=== PATIENT | male | born 1990 ===

== ENCOUNTER 2017-10-28 11:14 | Inpatient (IN) | payer MEDICAID, OTHER ==
--- NOTE | 2017-10-28 11:53 | ED PDOC ---
Arrival/HPI - General Chief Complaint: Psychiatric Evaluation Time Seen by Provider: 10/28/17 11:18 Historian: Patient - History of Present Illness Narrative History of Present Illness (Text): 10/28/17 11:50 27 year old male, whose past medical history includes schizophrenia, presents to the emergency department for transfer from [facility] for psych admission. Patient will be admitted under Dr. Shell. Patient reports suicidal ideation and auditory hallucinations, but denies any fever, chills, chest pain, shortness of breath, nausea, vomiting, diarrhea, urinary symptoms, back pain, neck pain, headache, dizziness, homicidal Ideation, or any other complaints. Symptom Onset: Other Symptom Course: Unchanged Activities at Onset: Light Context: Other (Transfer) Past Medical History - Provider Review Nursing Documentation Reviewed: Yes - Infectious Disease Hx of Infectious Diseases: None - Cardiac Hx Cardiac Disorders: No - Pulmonary Hx Respiratory Disorders: No - Neurological Hx Neurological Disorder: No - HEENT Hx HEENT Disorder: No - Renal Hx Renal Disorder: No - Endocrine/Metabolic Hx Endocrine Disorders: No - Hematological/Oncological Hx Blood Disorders: No - Integumentary Hx Dermatological Disorder: No - Musculoskeletal/Rheumatological Hx Musculoskeletal Disorders: No - Gastrointestinal Hx Gastrointestinal Disorders: No - Genitourinary/Gynecological Hx Genitourinary Disorders: No - Psychiatric Hx Psychophysiologic Disorder: Yes Hx Depression: Yes Hx Substance Use: Yes Other/Comment: impulsive behavior - Anesthesia Hx Anesthesia: No Family/Social History - Physician Review Nursing Documentation Reviewed: Yes Family/Social History: No Known Family HX Smoking Status: Never Smoked Hx Alcohol Use: No Hx Substance Use: Yes Substance used: cocaine Allergies/Home Meds Allergies/Adverse Reactions: Allergies No Known Allergies Allergy (Verified 10/28/17 11:26) Home Medications: Home Meds Medication Instructions Recorded Confirmed No Known Home Med 10/28/17 10/28/17 Review of Systems - Physician Review All systems were reviewed & negative as marked: Yes - Review of Systems Constitutional: absent: Fevers, Other (Chills) Respiratory: absent: SOB Cardiovascular: absent: Chest Pain Gastrointestinal: absent: Diarrhea, Nausea, Vomiting Genitourinary Male: absent: Dysuria, Frequency, Hematuria Musculoskeletal: absent: Back Pain, Neck Pain Neurological: absent: Headache, Dizziness Psychiatric: Suicidal Ideation, Other ((+)auditory hallucinations (-) homicidal Ideation) Physical Exam Vital Signs Reviewed: Yes Vital Signs Temp Pulse Resp BP Pulse Ox 10/28/17 11:23 98.2 F 64 17 101/66 97 Temperature: Afebrile Blood Pressure: Normal Pulse: Regular Respiratory Rate: Normal Appearance: Positive for: Well-Appearing, Non-Toxic, Comfortable Pain Distress: None Mental Status: Positive for: Alert and Oriented X 3 - Systems Exam Head: Present: Atraumatic, Normocephalic Pupils: Present: PERRL Extroacular Muscles: Present: EOMI Conjunctiva: Present: Normal Mouth: Present: Moist Mucous Membranes Neck: Present: Normal Range of Motion Respiratory/Chest: Present: Clear to Auscultation, Good Air Exchange. No: Respiratory Distress, Accessory Muscle Use Cardiovascular: Present: Regular Rate and Rhythm, Normal S1, S2. No: Murmurs Abdomen: Present: Normal Bowel Sounds. No: Tenderness, Distention, Peritoneal Signs Back: Present: Normal Inspection Upper Extremity: Present: Normal Inspection. No: Cyanosis, Edema Lower Extremity: Present: Normal Inspection. No: Edema Neurological: Present: GCS=15, CN II-XII Intact, Speech Normal Skin: Present: Warm, Dry, Normal Color. No: Rashes Psychiatric: Present: Alert, Oriented x 3, Normal Insight, Normal Concentration Medical Decision Making ED Course and Treatment: 10/28/17 11:50 Impression: 27 year old male presents for psych admission under Dr. Shell. Patient reports suicidal Ideation and auditory hallucinations. Patient is medical cleared. Plan: -- Reassess and disposition Progress Notes: - Medication Orders Current Medication Orders: Acetaminophen (Tylenol 325mg Tab) 650 mg PO Q6H PRN PRN Reason: Pain, moderate (4-7) Al Hydrox/Mg Hydrox/Simethicone (Maalox Plus 30 Ml) 30 ml PO DAILY PRN PRN Reason: Indigestion / Heartburn Diphenhydramine HCl (Benadryl) 50 mg PO Q6H PRN PRN Reason: Agitation Diphenhydramine HCl (Benadryl) 50 mg IM Q6H PRN PRN Reason: Agitation Divalproex Sodium (Depakote Dr (*Bid*)) 250 mg PO [facility]HS JOSE ANGEL PRN Reason: Protocol Fluoxetine HCl (Prozac) 20 mg PO DAILY JOSE ANGEL Haloperidol (Haldol) 5 mg PO Q6H PRN; Protocol PRN Reason: Agitation Haloperidol Lactate (Haldol) 5 mg IM Q6H PRN; Protocol PRN Reason: Agitation Hydroxyzine Pamoate (Vistaril) 50 mg PO Q8 PRN; Protocol PRN Reason: Anxiety Lorazepam (Ativan) 2 mg PO Q6H PRN; Protocol PRN Reason: Agitation Lorazepam (Ativan) 2 mg IM Q6H PRN; Protocol PRN Reason: Agitation Magnesium Hydroxide (Milk Of Magnesia) 30 ml PO DAILY PRN PRN Reason: Constipation Nicotine (Nicoderm Cq) 1 patch TD DAILY [facility] Last Admin: 10/28/17 13:52 Dose: 1 patch MAR Transdermal Patch Site Document 10/28/17 13:52 CV (Rec: 10/28/17 13:52 CV [id number]) Transdermal Patch Site Transdermal Patch Site Right Shoulder Quetiapine Fumarate (Seroquel) 100 mg PO AMHS JOSE ANGEL PRN Reason: Protocol Discontinued Medications Quetiapine Fumarate (Seroquel) 100 mg PO ONCE ONE PRN Reason: Protocol Stop: 10/28/17 13:01 Last Admin: 10/28/17 13:51 Dose: 100 mg Behavioural Document 10/28/17 13:51 CV (Rec: 10/28/17 13:52 CV [id number]) Maintenance Maintenance Dose Yes Nonmedicinal Nonmedicinal Interventions Therapeutic Communication Valproate Sodium (Depakene) 250 mg PO ONCE ONE Stop: 10/28/17 13:06 Last Admin: 10/28/17 13:51 Dose: 250 mg Disposition/Present on Arrival - Present on Arrival Any Indicators Present on Arrival: No History of DVT/PE: No History of Uncontrolled Diabetes: No Urinary Catheter: No History of Decub. Ulcer: No History Surgical Site Infection Following: None - Disposition Have Diagnosis and Disposition been Completed?: Yes Diagnosis: Chest pain Disposition: HOSPITALIZED Disposition Time: 11:20 Condition: STABLE
[2017-10-28] MEDS ORDERED: DiphenhydrAMINE 50 mg/ml Inj IM PRN (13:11)
[2017-10-28] MEDS ORDERED: Alum-Mag Hydrox-Simethicone Susp (30 mL) PO PRN (13:21)
[2017-10-28] MEDS ORDERED: Magnesium Hydroxide Susp 30 ml UD PO PRN (13:22)
--- NOTE | 2017-10-28 14:51 | PCM.BM ---
<LeaVandana - Last Filed: 10/28/17 15:12> Treatment Plan Problems - Problems identified on initial assessmt high risk/suicide Date Initiated: 10/28/17 Time Initiated: 14:30 Assessment reference: NA Status: Active Priority: 1 hopelessness/helplessness Date Initiated: 10/28/17 Time Initiated: 14:30 Assessment reference: NA Status: Active Priority: 2 feeling of worthlessness Date Initiated: 10/28/17 Time Initiated: 15:00 Assessment reference: NA Status: Active Priority: 3 altered sleep pattern Date Initiated: 10/28/17 Time Initiated: 15:00 Assessment reference: NA Status: Active Priority: 4 medication nonadherence Date Initiated: 10/28/17 Time Initiated: 15:00 Assessment reference: NA Status: Active Priority: 5 ineffective coping Date Initiated: 10/28/17 Time Initiated: 15:00 Assessment reference: NA Status: Active Priority: 6 Treatment assets and liabiliti Patient Assests: adapts well, ADL independent, negotiates basic needs Patient Liabilities: live alone, financial problems, poor support system, relationship conflicts, substance abuse - Milieu Protocol Maintain good personal hygiene: daily Encourage regular showers, daily Remind patient to perform daily oral care, daily Assist patient to perform ADL's Conduct patient checks and document Observation sheet: Q15 minutes Maintain personal safety: every shift Educate patient to report safety concerns to staff, every shift Monitor environment for contraband/sharps Medication safety: Monitor for expected outcome, potential side effects: every shift, Assess barriers to learning: every shift, Assess readiness for medication education: every shift Family Contact - Goals for Treatment Patient goals for treatment: for safety and stabilization Discharge/Continuing Care - Education Needs Education Needs: Patient Medication, Patient Diagnosis/Disease Process, Patient Coping Skills, Patient Anger Management skills, Patient Placement options, Patient Community resources, Patient Personal Hygiene/Grooming - Discharge Discharge Criteria: Tolerates medication w/o severe side effects, Free of Suicidal thoughts, Normal sleep pattern, Ability to care for self <Tiffanie Rizo - Last Filed: 10/28/17 17:31> - Diagnosis (1) Schizoaffective disorder Status: Acute Interventions: Psychoeducation/psychotherapy Psychopharmacology/adjustment of medications as needed/ monitoring possible side effects Evaluate pt on daily basis Compliance with medications and follow up appointments Long acting medication if pt is noncompliant with pill form Suicide and homicide risk assessment and prevention, coping strategies, safety plan Relapse prevention Reduction of symptoms Improve functional status Possible assertive community treatment Cognitive behavioral therapy Family involvement Possible social skill training as outpatient 10/28/17 17:33 (2) Polysubstance abuse Status: Chronic Interventions: Monitoring for withdrawal symptoms Medical detoxification if necessary Pharmacotherapy for alcohol/benzos/opioid dependenceif needed Psychoeducation Maintaining sobriety Relapse prevention Possible rehabilitation Motivational interviewing 12-step programs: AA meetings 10/28/17 17:35 <Rossana Vega - Last Filed: 10/29/17 11:47> Family Contact Family involvement: Famliy/SO not involved <Halie Fontanez - Last Filed: 10/29/17 12:53> - Diagnosis (1) Schizoaffective disorder Status: Acute Interventions: Psychoeducation/psychotherapy Psychopharmacology/adjustment of medications as needed/ monitoring possible side effects Evaluate pt on daily basis Compliance with medications and follow up appointments Long acting medication if pt is noncompliant with pill form Suicide and homicide risk assessment and prevention, coping strategies, safety plan Relapse prevention Reduction of symptoms Improve functional status Possible assertive community treatment Cognitive behavioral therapy Family involvement Possible social skill training as outpatient 10/28/17 17:33 (2) Polysubstance abuse Status: Chronic Interventions: Monitoring for withdrawal symptoms Medical detoxification if necessary Pharmacotherapy for alcohol/benzos/opioid dependenceif needed Psychoeducation Maintaining sobriety Relapse prevention Possible rehabilitation Motivational interviewing 12-step programs: AA meetings 10/28/17 17:35 <Marjan Parks - Last Filed: 10/29/17 16:06>
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
[2017-10-28] MEDS: Divalproex 250 mg DR (BID formulation) PO SCH (21:11)
[2017-10-29 07:58] LABS: GLUCOSE,FASTING 77 mg/dL (65-110); HDL CHOLESTEROL 32 mg/dL (29-60)
[2017-10-29 08:09] LABS: LDL CHOLESTEROL 119 mg/dL (0-129)
[2017-10-29 08:12] LABS: FREE T4 1.2 ng/dL (0.78-2.19)
[2017-10-29] MEDS: Divalproex 250 mg DR (BID formulation) PO SCH ×2 (09:20→21:15)
--- NOTE | 2017-10-29 10:50 | PCM.PYCHPN ---
Psychiatric Progress Note - Psychiatric Progress Note Patient seen today, length of contact: 25 min Patient Chief Complaint: depressed Problems Identified/Issues Discussed: I reviewed assessment and recent notes. I met with patient at bedside and during treatment team meeting. Patient was initially very resistant to attend our treatment team meeting however could be good-naturedly coaxed into the room for a brief interview. Presently he is well-oriented and calm. Reports continued depression and anxiety. Denies changes in symptoms since admission. Slept well last night. I reviewed his medication regimen, dosing and indications. Thus far he is tolerating these medications and reports they were a beneficial combination for him in the past. Patient's affect is constricted and mildly irritable but in control. He apologizes for his initial reluctance to attend our meeting, he was hungry and wanted to eat breakfast. Patient denies any new discomfort or pain. Denied any questions or concerns during our meeting. Staff notes indicate that patient has been withdrawn with poor unit engagement thus far. There were no major behavioral issues overnight Diagnostic Results: Schizoaffective Disorder Polysubstance Abuse PTSD (per patient history) Impaired Cognitive Functioning/ Learning Disability NOS Mental Status Examination - Cognitive Function Orientation: Person, Place, Situation, Time Attention: WNL Concentration: Poor Association: Loose - Mood Mood: Depressed - Affect Affect: Constricted, Flat, Other (a little irritable) - Speech Speech: Appropriate - Formal Thought Process Formal Thought Process: No Impairment - Suicidal Ideation Suicidal Ideation: No - Homicidal Ideation Homicidal Ideation: No Goal/Treatment Plan - Goal/Treatment Plan Progress Toward Problem(s) and Goals/Treatment Plan: * c/w current tx and plan * Appreciate f/u by Dr. Robledo on 10/30/17 * Vitals reviewed and noted below: 10/28/17 10/28/17 10/28/17 11:23 13:00 16:00 Temperature 98.2 F Pulse Rate 64 63 Respiratory 17 16 Rate Blood Pressure 101/66 95/50 L * New floor labs noted below: 10/29/17 10/29/17 07:30 07:30 Fasting Glucose 77 Triglycerides 122 Cholesterol 176 LDL Cholesterol Direct 119 HDL Cholesterol 32 Free T4 1.20 TSH 3rd Generation 1.23
--- NOTE | 2017-10-30 07:03 | CP.PCM.CON ---
<Kiran Robledo - Last Filed: 11/01/17 05:49> History of Present Illness - History of Present Illness History of Present Illness: Chief Complaint: Suicidal ideations HPI: Patient is a 27 year old male who presents from [facility] with complaints of suicide ideations with a thought out plan of running into traffic. Patient was seen and evaluated stating he has no medical problems. Denies history of hypertension, dyslipidemia, endocrinology pathology, cardiac pathology. Patient states he does drugs; admits to cocaine abuse this past Wednesday. Denies chest pain, palpitations after cocaine use or with past cocaine use. Denies chest pain, abdominal pain, shortness of breath, fevers, chills, nausea, vomiting, diarrhea, cough, headache. PMD: Denies Social History: homeless, admits to 1/2 ppd of tobacco, admits to alcohol consumption, and cocaine and heroin abuse Allergies: NKDA Review of Systems - Review of Systems Systems not reviewed;Unavailable: Acuity of Condition - Constitutional Constitutional: absent: Anorexia, Chills - EENT Eyes: absent: Blind Spots, Blurred Vision - Cardiovascular Cardiovascular: absent: Chest Pain, Dyspnea - Respiratory Respiratory: absent: Cough, Dyspnea - Gastrointestinal Gastrointestinal: absent: Abdominal Pain, Diarrhea, Nausea, Vomiting - Genitourinary Genitourinary: absent: Dysuria, Hematuria - Integumentary Integumentary: absent: Acne, Alopecia - Neurological Neurological: absent: Confusion, Loss of Vision - Hematologic/Lymphatic Hematologic: absent: Easy Bleeding, Easy Bruising Past Patient History - Infectious Disease Hx of Infectious Diseases: None - Past Social History Smoking Status: Never Smoked - CARDIAC Hx Cardiac Disorders: No - PULMONARY Hx Respiratory Disorders: No - NEUROLOGICAL Hx Neurological Disorder: No - HEENT Hx HEENT Problems: No - RENAL Hx Chronic Kidney Disease: No - ENDOCRINE/METABOLIC Hx Endocrine Disorders: No - HEMATOLOGICAL/ONCOLOGICAL Hx Blood Disorders: No - INTEGUMENTARY Hx Dermatological Problems: No - MUSCULOSKELETAL/RHEUMATOLOGICAL Hx Musculoskeletal Disorders: No - GASTROINTESTINAL Hx Gastrointestinal Disorders: No - GENITOURINARY/GYNECOLOGICAL Hx Genitourinary Disorders: No - PSYCHIATRIC Hx Substance Use: Yes - SURGICAL HISTORY Hx Surgeries: No Hx Abdominal Aortic Aneurysm Repair: No Hx Amputation: No Hx Angiogram: No Hx Angioplasty: No Hx Appendectomy: No Hx Arteriovenous Shunt: No Hx Arthroscopy: No Hx Bile Duct Stent: No Hx Breast Biopsy: No Hx Cataract Extraction: No Hx Cardiac Catheterization: No Hx Carotid Endarterectomy: No Hx Section: No - ANESTHESIA Hx Anesthesia: No Meds Allergies/Adverse Reactions: Allergies Allergy/AdvReac Type Severity Reaction Status Date / Time No Known Allergies Allergy Verified 10/28/17 18:53 - Medications Medications: Current Medications Acetaminophen (Tylenol 325mg Tab) 650 mg PO Q6H PRN PRN Reason: Pain, moderate (4-7) Al Hydrox/Mg Hydrox/Simethicone (Maalox Plus 30 Ml) 30 ml PO DAILY PRN PRN Reason: Indigestion / Heartburn Diphenhydramine HCl (Benadryl) 50 mg PO Q6H PRN PRN Reason: Agitation Diphenhydramine HCl (Benadryl) 50 mg IM Q6H PRN PRN Reason: Agitation Divalproex Sodium (Depakote Dr (*Bid*)) 250 mg PO [facility] PRN Reason: Protocol Last Admin: 10/29/17 21:15 Dose: 250 mg Fluoxetine HCl (Prozac) 20 mg PO DAILY [facility] Last Admin: 10/29/17 09:21 Dose: 20 mg Haloperidol (Haldol) 5 mg PO Q6H PRN; Protocol PRN Reason: Agitation Haloperidol Lactate (Haldol) 5 mg IM Q6H PRN; Protocol PRN Reason: Agitation Hydroxyzine Pamoate (Vistaril) 50 mg PO Q8 PRN; Protocol PRN Reason: Anxiety Lorazepam (Ativan) 2 mg PO Q6H PRN; Protocol PRN Reason: Agitation Lorazepam (Ativan) 2 mg IM Q6H PRN; Protocol PRN Reason: Agitation Magnesium Hydroxide (Milk Of Magnesia) 30 ml PO DAILY PRN PRN Reason: Constipation Nicotine (Nicoderm Cq) 1 patch TD DAILY [facility] Last Admin: 10/29/17 09:20 Dose: 1 patch Quetiapine Fumarate (Seroquel) 100 mg PO [facility] PRN Reason: Protocol Last Admin: 10/29/17 21:15 Dose: 100 mg Physical Exam - Head Exam Head Exam: NORMAL INSPECTION, NORMOCEPHALIC - Eye Exam Eye Exam: EOMI, Normal appearance - Neck Exam Neck exam: Positive for: Normal Inspection - Respiratory Exam Respiratory Exam: Clear to Auscultation Bilateral, NORMAL BREATHING PATTERN - Cardiovascular Exam Cardiovascular Exam: REGULAR RHYTHM, +S1, +S2 - GI/Abdominal Exam GI & Abdominal Exam: Normal Bowel Sounds, Soft - Extremities Exam Extremities exam: Positive for: normal inspection - Back Exam Back exam: NORMAL INSPECTION - Neurological Exam Neurological exam: Alert, CN II-XII Intact, Oriented x3 - Skin Skin Exam: Intact, Normal Color, Warm Results - Vital Signs Recent Vital Signs: Last Vital Signs Temp 97.4 F L 10/29/17 07:27 Pulse 52 L 10/29/17 07:27 Resp 20 10/29/17 07:27 BP 91/54 L 10/29/17 07:27 Pulse Ox 97 10/28/17 11:23 - Labs Labs: Laboratory Results - last 24 hr 10/29/17 10/29/17 10/29/17 07:30 07:30 07:30 Fasting Glucose 77 Triglycerides 122 Cholesterol 176 LDL Cholesterol Direct 119 HDL Cholesterol 32 Free T4 1.20 TSH 3rd Generation 1.23 RPR Nonreactive Assessment & Plan - Assessment and Plan (Free Text) Plan: Medical Clearance - Patient has no acute medical problems at the moment - Labs reviewed from [place] [facility] within normal limits - Advised patient to follow up with his PMD regarding hospitalization - Patient is cleared from a medical standpoint <Magui Epstein - Last Filed: 11/01/17 13:22> Meds - Medications Medications: Current Medications Acetaminophen (Tylenol 325mg Tab) 650 mg PO Q6H PRN PRN Reason: Pain, moderate (4-7) Al Hydrox/Mg Hydrox/Simethicone (Maalox Plus 30 Ml) 30 ml PO DAILY PRN PRN Reason: Indigestion / Heartburn Diphenhydramine HCl (Benadryl) 50 mg PO Q6H PRN PRN Reason: Agitation Last Admin: 10/30/17 21:47 Dose: 50 mg Diphenhydramine HCl (Benadryl) 50 mg IM Q6H PRN PRN Reason: Agitation Divalproex Sodium (Depakote Dr (*Bid*)) 250 mg PO [facility] PRN Reason: Protocol Last Admin: 11/01/17 09:53 Dose: 250 mg Fluoxetine HCl (Prozac) 20 mg PO DAILY [facility] Last Admin: 11/01/17 09:53 Dose: 20 mg Haloperidol (Haldol) 5 mg PO Q6H PRN; Protocol PRN Reason: Agitation Haloperidol Lactate (Haldol) 5 mg IM Q6H PRN; Protocol PRN Reason: Agitation Hydroxyzine Pamoate (Vistaril) 50 mg PO Q8 PRN; Protocol PRN Reason: Anxiety Last Admin: 10/31/17 05:48 Dose: 50 mg Lorazepam (Ativan) 2 mg PO Q6H PRN; Protocol PRN Reason: Agitation Lorazepam (Ativan) 2 mg IM Q6H PRN; Protocol PRN Reason: Agitation Magnesium Hydroxide (Milk Of Magnesia) 30 ml PO DAILY PRN PRN Reason: Constipation Nicotine (Nicoderm Cq) 1 patch TD DAILY [facility] Last Admin: 11/01/17 09:53 Dose: 1 patch Quetiapine Fumarate (Seroquel) 100 mg PO [facility] PRN Reason: Protocol Last Admin: 11/01/17 09:53 Dose: 100 mg Results - Vital Signs Recent Vital Signs: Last Vital Signs Temp 98.2 F 11/01/17 06:55 Pulse 54 L 11/01/17 06:55 Resp 20 11/01/17 06:55 BP 94/51 L 11/01/17 06:55 Pulse Ox 97 10/28/17 11:23 Attending/Attestation - Attestation I have personally seen and examined this patient.: Yes I have fully participated in the care of the patient.: Yes I have reviewed all pertinent clinical information: Yes Notes (Text): 11/01/17 13:20 attending note; Patient seen and examined with resident in psychiatric floor. Patient is a 27-year-old male with history of smoking,alcohol abuse,drug abuse, homelessness is admitted with suicidal ideation. Lab work from [facility] reviewed. Patient is medically stable. Smoking cessation is strongly advised. Started on NicoDerm patch. Alcohol, drug abuse cessation is strongly advised. Patient needs psychiatric follow-up. Upon discharge patient will follow up with PMD of choice. Patient is medically stable. Please reconsult as needed. thank you for the courtesy of this consultation. 11/01/17 13:21
--- NOTE | 2017-10-30 09:12 | PCM.PYCHPN ---
Psychiatric Progress Note - Psychiatric Progress Note Patient seen today, length of contact: 25 min Patient Chief Complaint: depressed Problems Identified/Issues Discussed: I reviewed recent notes and met with patient at bedside. He remains well- oriented and reticent. Reports continued depression and anxiety. Denies changes in symptoms since admission. Slept well again last night. Thus far he is tolerating his medications and denies any side effects from them. Patient's affect is constricted and a little disinterested. He denies any new discomfort or pain. Staff notes indicate that patient has been withdrawn with poor unit engagement thus far. Spends a lot of time in bed. There were no major behavioral issues overnight Diagnostic Results: Schizoaffective Disorder Polysubstance Abuse PTSD (per patient history) Impaired Cognitive Functioning/ Learning Disability NOS Mental Status Examination - Cognitive Function Orientation: Person, Place, Situation, Time Attention: WNL Concentration: Poor Association: Loose - Mood Mood: Depressed - Affect Affect: Constricted, Flat, Other (a little irritable) - Speech Speech: Appropriate - Formal Thought Process Formal Thought Process: No Impairment - Suicidal Ideation Suicidal Ideation: No - Homicidal Ideation Homicidal Ideation: No Goal/Treatment Plan - Goal/Treatment Plan Progress Toward Problem(s) and Goals/Treatment Plan: * c/w current tx and plan * Seroquel 100 mg HS and Depakote 250/250 for mood stabilization * Prozac 20 mg po daily for depression * Vitals reviewed and noted below: 10/28/17 10/28/17 10/28/17 11:23 13:00 16:00 Temperature 98.2 F Pulse Rate 64 63 Respiratory 17 16 Rate Blood Pressure 101/66 95/50 L 10/29/17 07:27 Temperature 97.4 F L Pulse Rate 52 L Respiratory 20 Rate Blood Pressure 91/54 L * New floor labs noted below: 10/29/17 10/29/17 07:30 07:30 Fasting Glucose 77 Triglycerides 122 Cholesterol 176 LDL Cholesterol Direct 119 HDL Cholesterol 32 Free T4 1.20 TSH 3rd Generation 1.23
[2017-10-30] MEDS: Divalproex 250 mg DR (BID formulation) PO SCH ×2 (09:55→21:46)
--- NOTE | 2017-10-31 09:32 | PCM.PYCHPN ---
Psychiatric Progress Note - Psychiatric Progress Note Patient seen today, length of contact: 25 min Patient Chief Complaint: depressed Problems Identified/Issues Discussed: I reviewed recent notes and met with patient at bedside. He remains well- oriented and reticent. Grooming is acceptable. He reports continued depression and anxiety. Denies changes in symptoms since admission. Slept well again last night. Thus far he is tolerating his medications and denies any side effects except for brief dizziness yesterday. Patient's affect is constricted and disinterested. He denies any new discomfort or pain but he complains that he isn 't getting enough food. Staff notes indicate that patient has been withdrawn with poor unit engagement or interactions thus far. Spends a lot of time in bed. There were no major behavioral issues over the weekend. Diagnostic Results: Schizoaffective Disorder Polysubstance Abuse PTSD (per patient history) Impaired Cognitive Functioning/ Learning Disability NOS Mental Status Examination - Cognitive Function Orientation: Person, Place, Situation, Time Attention: WNL Concentration: Poor Association: Loose - Mood Mood: Depressed - Affect Affect: Constricted, Flat, Other (a little irritable) - Speech Speech: Appropriate - Formal Thought Process Formal Thought Process: No Impairment - Suicidal Ideation Suicidal Ideation: No - Homicidal Ideation Homicidal Ideation: No Goal/Treatment Plan - Goal/Treatment Plan Progress Toward Problem(s) and Goals/Treatment Plan: * c/w current tx and plan * Seroquel 100/100 and Depakote 250/250 for mood stabilization * Prozac 20 mg po daily for depression * Appreciate f/u by Dr. Robledo on 10/30/17 * Vitals reviewed and noted below: 10/29/17 10/30/17 07:27 07:00 Temperature 97.4 F L 97.6 F Pulse Rate 52 L 56 L Respiratory 20 18 Rate Blood Pressure 91/54 L 99/51 L * New floor labs noted below: 10/29/17 10/29/17 07:30 07:30 Fasting Glucose 77 Triglycerides 122 Cholesterol 176 LDL Cholesterol Direct 119 HDL Cholesterol 32 Free T4 1.20 TSH 3rd Generation 1.23
[2017-10-31] MEDS: Divalproex 250 mg DR (BID formulation) PO SCH ×2 (10:37→22:11)
[2017-11-01 06:55] VITALS: RESP 20
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
[2017-11-01] MEDS: Divalproex 250 mg DR (BID formulation) PO SCH ×2 (09:53→21:40)
--- NOTE | 2017-11-01 14:40 | PCM.PYCHPN ---
Psychiatric Progress Note - Psychiatric Progress Note Patient seen today, length of contact: 25 min Patient Chief Complaint: " I am still having voices telling me to hurt myself" Problems Identified/Issues Discussed: Patient is a 27 year old single male somewhat dishevelled and appearing his stated age. He was admitted for voices telling him to "jump into traffic" He has been isolating in bed most of the day. Says he was tired and had not slept on admission so he is "making up for it". He feel the medications are helpful but continues with the voices. He is working with the Customer Service Dispatcher on discharge plans but continues to complain of voices. Was encouraged to isolate less as he says the voices decrease when he is around people. Will continue with current medication regime, encourage less isolation and more involvement with unit activities. Plan is to discharge patient once stable to his mental health worker in [facility]. Patient's longer term plan is to move back to [place], his A worker will help with this. Medical Problems: Denied Diagnostic Results: Temp Pulse Resp BP Pulse Ox 98.2 F 54 L 20 94/51 L 97 11/01/17 06:55 11/01/17 06:55 11/01/17 06:55 11/01/17 06:55 10/28/17 11:23 Laboratory Tests 10/29/17 10/29/17 10/29/17 07:30 07:30 07:30 Fasting Glucose 77 Triglycerides 122 Cholesterol 176 LDL Cholesterol Direct 119 HDL Cholesterol 32 Free T4 1.20 TSH 3rd Generation 1.23 RPR Nonreactive Medication Change: No Medical Record Reviewed: Yes Consults ordered or reviewed: HPI from ER reviewed, patient medically cleared. Mental Status Examination - Cognitive Function Orientation: Person, Place, Situation, Time Attention: WNL Concentration: Poor Association: Loose - Mood Mood: Depressed - Affect Affect: Constricted, Flat, Other (a little irritable) - Speech Speech: Appropriate - Formal Thought Process Formal Thought Process: No Impairment - Suicidal Ideation Suicidal Ideation: No - Homicidal Ideation Homicidal Ideation: No Goal/Treatment Plan - Goal/Treatment Plan Need for Continued Stay: Remain at risks for inpatient hospitalization, Discharge may exacerbated symptoms Progress Toward Problem(s) and Goals/Treatment Plan: Treatment plan: Milieu/structure/supportive therapy Medical consult appreciated, see medical team note for more detailed info SW consultation for discharge plan and social issues Med management Family involvement Follow up on labs Will monitor closely SW evaluation for d/c planning Pt was educated about risk/benefits and alternatives of medications, coping strategies (safety plan, suicide prevention), relapse prevention, importance of follow up with psychiatrist and therapist, stay away from drugs/alcohol/smoking Estimated Date of D/C: 11/05/17 - Smoking Cessation Smoking Cessation Initiated: Yes
[2017-11-02] MEDS: Divalproex 250 mg DR (BID formulation) PO SCH ×2 (09:18→21:51)
--- NOTE | 2017-11-02 18:27 | PCM.PYCHPN ---
Psychiatric Progress Note - Psychiatric Progress Note Patient seen today, length of contact: 25 min Patient Chief Complaint: " I hear two voices, one good and one bad" Problems Identified/Issues Discussed: Patient is a 27 year old single male presenting more organized and appearing his stated age. ADLs are adequate. He self referred to the ER and was admitted because he heard voices telling him to "jump into traffic" He isolating less today. He is more animated in conversation, describing how the "good voices" help him walk away from trouble and the "bad ones" will encourage him to get in fights or something of that sort. They are more manageable at this time. Benefits of the medication and current medication schedule gone over , patient feels he is doing well on the medications as they are and knows he does better on medication outpatient. His follow up will be with the A in [facility] with the senior care plan to be to return to [place]. Medical Problems: Denied Diagnostic Results: Temp Pulse Resp BP Pulse Ox 98.2 F 54 L 20 94/51 L 97 11/01/17 06:55 11/01/17 06:55 11/01/17 06:55 11/01/17 06:55 10/28/17 11:23 Laboratory Tests 10/29/17 10/29/17 10/29/17 07:30 07:30 07:30 Fasting Glucose 77 Triglycerides 122 Cholesterol 176 LDL Cholesterol Direct 119 HDL Cholesterol 32 Free T4 1.20 TSH 3rd Generation 1.23 RPR Nonreactive Temp Pulse Resp BP Pulse Ox 98.0 F 85 20 112/75 97 11/02/17 07:19 11/02/17 16:00 11/01/17 06:55 11/02/17 16:00 10/28/17 11:23 Medication Change: No Medical Record Reviewed: Yes Consults ordered or reviewed: HPI from ER reviewed, patient medically cleared. Mental Status Examination - Cognitive Function Orientation: Person, Place, Situation, Time Attention: WNL Concentration: Poor Association: Loose - Mood Mood: Depressed - Affect Affect: Constricted, Flat, Other (a little irritable) - Speech Speech: Appropriate - Formal Thought Process Formal Thought Process: No Impairment - Suicidal Ideation Suicidal Ideation: No - Homicidal Ideation Homicidal Ideation: No Goal/Treatment Plan - Goal/Treatment Plan Need for Continued Stay: Remain at risks for inpatient hospitalization, Discharge may exacerbated symptoms Progress Toward Problem(s) and Goals/Treatment Plan: Treatment plan: Milieu/structure/supportive therapy Medical consult appreciated, see medical team note for more detailed info SW consultation for discharge plan and social issues Med management Family involvement Follow up on labs Will monitor closely evaluation for d/c planning Pt was educated about risk/benefits and alternatives of medications, coping strategies (safety plan, suicide prevention), relapse prevention, importance of follow up with psychiatrist and therapist, stay away from drugs/alcohol/smoking Estimated Date of D/C: 11/05/17
[2017-11-03] MEDS: Divalproex 250 mg DR (BID formulation) PO SCH ×2 (09:28→21:27)
--- NOTE | 2017-11-03 21:14 | PCM.PYCHPN ---
Psychiatric Progress Note - Psychiatric Progress Note Patient seen today, length of contact: 25 min Patient Chief Complaint: " The voices are less" Problems Identified/Issues Discussed: Patient is a 27 year old single male appearing his stated age. ADLs are adequate. He self referred to the ER and was admitted because he heard voices telling him to "jump into traffic". Since hospitalized his affect is improved. He is more animated in conversation, and is more outgoing when observed in group situations. The voices are more manageable at this time. 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 His follow up will be with the [facility] in [facility] with the equipment operator intermodal yard plan to be to return to [place]. Medical Problems: Denied Diagnostic Results: Temp Pulse Resp BP Pulse Ox 98.2 F 54 L 20 94/51 L 97 11/01/17 06:55 11/01/17 06:55 11/01/17 06:55 11/01/17 06:55 10/28/17 11:23 Laboratory Tests 10/29/17 10/29/17 10/29/17 07:30 07:30 07:30 Fasting Glucose 77 Triglycerides 122 Cholesterol 176 LDL Cholesterol Direct 119 HDL Cholesterol 32 Free T4 1.20 TSH 3rd Generation 1.23 RPR Nonreactive Temp Pulse Resp BP Pulse Ox 98.0 F 85 20 112/75 97 11/02/17 07:19 11/02/17 16:00 11/01/17 06:55 11/02/17 16:00 10/28/17 11:23 Temp Pulse Resp BP Pulse Ox 97.9 F 56 L 20 101/61 97 11/03/17 07:36 11/03/17 07:36 11/03/17 07:36 11/03/17 07:36 10/28/17 11:23 Medication Change: No (Patient tolerating medications well) Medical Record Reviewed: Yes Consults ordered or reviewed: HPI from ER reviewed, patient medically cleared. Mental Status Examination - Cognitive Function Orientation: Person, Place, Situation, Time Attention: WNL Concentration: Poor Association: Loose - Mood Mood: Depressed, Neutral - Affect Affect: Constricted, Other (a little irritable) - Speech Speech: Appropriate - Formal Thought Process Formal Thought Process: Hallucinations Psychotic Thoughts and Behaviors: Patient still hears voices, says they are improving - Suicidal Ideation Suicidal Ideation: No - Homicidal Ideation Homicidal Ideation: No Goal/Treatment Plan - Goal/Treatment Plan Need for Continued Stay: Remain at risks for inpatient hospitalization, Discharge may exacerbated symptoms Progress Toward Problem(s) and Goals/Treatment Plan: Treatment plan: Milieu/structure/supportive therapy Medical consult appreciated, see medical team note for more detailed info SW consultation for discharge plan and social issues Med management Family involvement Follow up on labs Will monitor closely SW evaluation for d/c planning Pt was educated about risk/benefits and alternatives of medications, coping strategies (safety plan, suicide prevention), relapse prevention, importance of follow up with psychiatrist and therapist, stay away from drugs/alcohol/smoking Estimated Date of D/C: 11/05/17 - Smoking Cessation Smoking Cessation Initiated: Yes
[2017-11-04] MEDS: Divalproex 250 mg DR (BID formulation) PO SCH ×2 (09:16→21:17)
--- NOTE | 2017-11-04 11:57 | PCM.PYCHPN ---
Psychiatric Progress Note - Psychiatric Progress Note Patient seen today, length of contact: 25 min Patient Chief Complaint: " I am feeling really good, I do not hear the voices any more"" Problems Identified/Issues Discussed: Patient is a 27 year old single male appearing his stated age. ADLs are adequate. He self referred to the ER and was admitted because he heard voices telling him to "jump into traffic". Since hospitalized his affect is improved. He is more animated in conversation, and is more outgoing when observed in group situations. The voices are more manageable at this time. Patient continues to tolerate medication well and feels that it is important for him to stay on medication for the shelter. 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 Medical Problems: Denied Diagnostic Results: Temp Pulse Resp BP Pulse Ox 98.2 F 54 L 20 94/51 L 97 11/01/17 06:55 11/01/17 06:55 11/01/17 06:55 11/01/17 06:55 10/28/17 11:23 Laboratory Tests 10/29/17 10/29/17 10/29/17 07:30 07:30 07:30 Fasting Glucose 77 Triglycerides 122 Cholesterol 176 LDL Cholesterol Direct 119 HDL Cholesterol 32 Free T4 1.20 TSH 3rd Generation 1.23 RPR Nonreactive Temp Pulse Resp BP Pulse Ox 98.0 F 85 20 112/75 97 11/02/17 07:19 11/02/17 16:00 11/01/17 06:55 11/02/17 16:00 10/28/17 11:23 Temp Pulse Resp BP Pulse Ox 97.9 F 56 L 20 101/61 97 11/03/17 07:36 11/03/17 07:36 11/03/17 07:36 11/03/17 07:36 10/28/17 11:23 Medication Change: No (Patient tolerating medications well) Medical Record Reviewed: Yes Consults ordered or reviewed: HPI from ER reviewed, patient medically cleared. Mental Status Examination - Cognitive Function Orientation: Person, Place, Situation, Time Attention: WNL Concentration: WNL Association: WNL - Mood Mood: Neutral - Affect Affect: Broad, Other (a little irritable) - Speech Speech: Appropriate - Formal Thought Process Formal Thought Process: Hallucinations Psychotic Thoughts and Behaviors: Patient denies the presence of hallucinations, delusions or paranoia. - Suicidal Ideation Suicidal Ideation: No - Homicidal Ideation Homicidal Ideation: No Goal/Treatment Plan - Goal/Treatment Plan Need for Continued Stay: Remain at risks for inpatient hospitalization, Discharge may exacerbated symptoms Progress Toward Problem(s) and Goals/Treatment Plan: Treatment plan: Milieu/structure/supportive therapy Medical consult appreciated, see medical team note for more detailed info SW consultation for discharge plan and social issues Med management Family involvement Follow up on labs Will monitor closely evaluation for d/c planning Pt was educated about risk/benefits and alternatives of medications, coping strategies (safety plan, suicide prevention), relapse prevention, importance of follow up with psychiatrist and therapist, stay away from drugs/alcohol/smoking Estimated Date of D/C: 11/05/17 - Smoking Cessation Smoking Cessation Initiated: Yes
[2017-11-05 09:07] VITALS: BP 124/66; PULSE 101; TEMP 97.2; O2SAT 99
[2017-11-05] MEDS: Divalproex 250 mg DR (BID formulation) PO SCH (10:37)
--- NOTE | 2017-11-05 11:00 | PCM.PYCHDC ---
Mental Status Examination - Mental Status Examination Orientation: Person, Place, Situation, Time Memory: Intact Mood: Neutral Affect: Broad Attention: WNL Concentration: WNL Association: WNL Fund of Knowledge: Poor Formal Thought Process: No Impairment Description of patient's judgement and insight: Patient denies being suicidal or homicidal, appears in no imminent danger of hurting himself or others. Psychotic Thoughts and Behaviors: Patient denies the presence of hallucinations, delusions or paranoia. 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 He is homeless, unemployed and has problems with the legal justice system. He has a history of using substances, and multiple psychiatric hospitalizations with no follow up. He has a history of self mutilation (cutting) and 3 suicide attempts. Due to the severity of patients symptoms, patient could not be maintained in an outpatient setting, needs further evaluation and stabilization in acute psychiatric unit. Psychiatric History (includes Medical, Family, Personal Hx): Always hospitalized for suicidal thoughts or attempt Laboratory Data: Laboratory Tests 10/29/17 10/29/17 10/29/17 07:30 07:30 07:30 Fasting Glucose 77 Triglycerides 122 Cholesterol 176 LDL Cholesterol Direct 119 HDL Cholesterol 32 Free T4 1.20 TSH 3rd Generation 1.23 RPR Nonreactive Temp Pulse Resp BP Pulse Ox 97.2 F L 101 H 20 124/66 99 11/05/17 07:00 11/05/17 07:00 11/05/17 07:00 11/05/17 07:00 11/05/17 07:00 Consultations:: List each consultation separately and include: 1. Reason for request. 2. Findings. 3. Follow-up Consultations: HPI from ER reviewed, patient medically cleared. Summary of Hospital Course include:: 1. Description of specific treatment plan utilized for patients during their course of treatmen. 2. Summarize the time- course for resolution of acute symptoms and/or regressed behaviors. 3. Describe issues identified and worked on during hospitalization. 4. Describe medication utilized. 5. Describe medical problems identified and treated. 6. Reassessment of suicide risk Summary of Hospital Course: Patient is a 27 year old male who is of average height and build and appears his stated age. He is homeless and has not worked for 6 months. He has multiple scars visible on his arms and one on his chest. He indicates he used to cut himself but has not for 2 years. At age 19 he tried to hang himself, at age 23 he overdosed on pills, and at 25 he overdosed on heroin and was revived with Narcan. These were all attempts to kill himself. He has been hospitalized multiple times psychiatrically and has been on many medications, none that he can recall. He denies any medical issues, he smokes a half pack of cigarettes daily. He indicates he uses drugs from when he was a teenager when he can, crack cocaine, marijuana, he stopped using heroin 3 years ago. He denies serving in the . Legally, he is on probation from 2011 for 3rd degree robbery and weapons (a knife) possession. Patient grew up in [facility] [facility], he dropped out of school in the 9th grade. He indicates he has learning difficulties. 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 He denies any family or jewish affiliations. He has no significant other. Patient was cooperative on unit, took medications and began to attend groups late in his hospitalization as his symptoms decreased. Patient is aware of the importance of medication compliance. He feels his problems started when his medicaid was stopped and he was unable to fill his medication. He plans to follow up at discharge with his [facility] worker, and was informed that his worker may be able to help with medication and services if he has these problems again. His affect is improved, as well as his insight and judgment. Nicotine patch was given along with counseling on the dangers of tobacco use. Patient is planning not to use drugs, indicates he does this when he is not feeling well but does not use when he is stable psychiatrically. He is planning to abstain understands the interaction between alcohol and drugs and psychiatric medications can be dangerous. - Diagnosis (1) Schizoaffective disorder Current Visit: Yes Status: Acute (2) Polysubstance abuse Current Visit: Yes Status: Chronic - Final Diagnosis (DSM 5) Condition upon Discharge: STABLE Disposition: HOME/ ROUTINE Follow-up Treatment Plan: Treatment plan: Milieu/structure/supportive therapy Medical consult appreciated, see medical team note for more detailed info SW consultation for discharge plan and social issues Med management Family involvement Follow up on labs Will monitor closely SW evaluation for d/c planning Pt was educated about risk/benefits and alternatives of medications, coping strategies (safety plan, suicide prevention), relapse prevention, importance of follow up with psychiatrist and therapist, stay away from drugs/alcohol/smoking Prescriptions/Medication Reconciliation: Divalproex [Depakote DR (*BID*)] 250 mg PO [facility] #28 tcp FLUoxetine [Prozac] 20 mg PO DAILY #14 cap Nicotine 21 mg/24 hr [Nicoderm Cq] 1 patch TD DAILY #14 patch QUEtiapine [Seroquel] 100 mg PO [facility] #28 tab
== END 2017-11-05 12:24 | disposition home or self-care (01) | DRG 430 ==
LOC: ED 11:14 → ERH 11:27 → PSYC 12:07 → 5RSO 10-29 21:04 → PSYC 10-29 21:10
PROVIDERS: ADMIT Psychiatry & Neurology Psychiatry; ATTEND Psychiatry & Neurology Psychiatry
DX: F25.9 Schizoaffective disorder, unspecified (principal); F11.10 Opioid abuse, uncomplicated; F14.10 Cocaine abuse, uncomplicated; F16.20 Hallucinogen dependence, uncomplicated; F17.210 Nicotine dependence, cigarettes, uncomplicated; F60.2 Antisocial personality disorder; F43.10 Post-traumatic stress disorder, unspecified; F81.9 Developmental disorder of scholastic skills, unspecified; F12.90 Cannabis use, unspecified, uncomplicated; Z59.0 Homelessness